=== PATIENT | female | born 1990 ===

== ENCOUNTER 2016-12-26 17:09 | Emergency (ER) | payer MEDICAID ==
[2016-12-26 17:22] VITALS: TEMP 98.2
--- NOTE | 2016-12-26 17:29 | C.PDOC ---
Time Seen by Provider: 12/26/16 17:29 Chief Complaint (Nursing): Dizziness/Lightheaded Past Medical History Vital Signs: Last Vital Signs Temp 98.2 F 12/26/16 17:17 Pulse 100 H 12/26/16 17:17 Resp 20 12/26/16 17:17 BP 114/77 12/26/16 17:17 Pulse Ox 100 12/26/16 17:17 - Medical History PMH: Asthma, Chronic Pain (Back pain ) Denies: Chronic Kidney Disease Family History: States: Unknown Family Hx - Social History Hx Tobacco Use: No Hx Alcohol Use: No Hx Substance Use: No - Immunization History Hx Tetanus Toxoid Vaccination: No Hx Influenza Vaccination: No Hx Pneumococcal Vaccination: No ED Course And Treatment O2 Sat by Pulse Oximetry: 100 Disposition - Disposition Disposition: HOME/ ROUTINE Disposition Time: 17:29
[2016-12-26 17:43] LABS: RBC URINE 13 /hpf (0-3); URINE BILIRUBIN NEGATIVE (NEGATIVE); URINE BLOOD 2+ (NEGATIVE); URINE CALCIUM OXALATE CRYSTALS FEW /hpf (<OCC); URINE COLOR Yellow (YELLOW); URINE GLUCOSE (UA) NORMAL (Normal); URINE KETONE NEGATIVE (NEGATIVE); URINE LEUKOCYTE ESTERASE 3+ Leu/uL (Negative); URINE PROTEIN NEGATIVE (NEGATIVE); URINE UROBILINOGEN NORMAL mg/dL (0.2-1.0); WBC URINE 56 /hpf (0-5)
--- NOTE | 2016-12-26 17:54 | C.PDOC ---
History Of Present Illness 26 y/o female presents to ED with complaints of feeling lightheadedness, nausea , and feeling tired for the past 3 weeks. Patient reports last menses was . She notes taking tests at home which were negative. Denies any pelvic pain, back pain, vaginal bleeding, dysuria, hematuria, vomiting, diarrhea , or other associated symptoms. Time Seen by Provider: 12/26/16 17:29 Chief Complaint (Nursing): Dizziness/Lightheaded History Per: Patient History/Exam Limitations: no limitations Onset/Duration Of Symptoms: Days Current Symptoms Are (Timing): Still Present Pain Scale Rating Of: 0 Recent travel outside of the [place]: No Past Medical History Reviewed: Historical Data, Nursing Documentation, Vital Signs Vital Signs: Last Vital Signs Temp 98.2 F 12/26/16 17:17 Pulse 85 12/26/16 17:56 Resp 18 12/26/16 17:56 BP 110/62 12/26/16 17:56 Pulse Ox 100 12/26/16 18:18 - Medical History PMH: Asthma, Chronic Pain (Back pain ) Family History: States: Unknown Family Hx - Social History Hx Tobacco Use: No Hx Alcohol Use: No Hx Substance Use: No - Immunization History Hx Tetanus Toxoid Vaccination: No Hx Influenza Vaccination: No Hx Pneumococcal Vaccination: No Review Of Systems Except As Marked, All Systems Reviewed And Found Negative. Constitutional: Positive for: Weakness. Negative for: Fever, Chills Respiratory: Negative for: Cough, Shortness of Breath Gastrointestinal: Positive for: Nausea. Negative for: Vomiting Genitourinary: Negative for: Vaginal Bleeding, Pelvic Pain Musculoskeletal: Negative for: Back Pain Physical Exam - Physical Exam Appears: Non-toxic, No Acute Distress Skin: Normal Color, Warm, Dry Head: Atraumatic, Normacephalic Oral Mucosa: Moist Chest: Symmetrical Cardiovascular: Rhythm Regular Respiratory: Normal Breath Sounds, No Rales, No Rhonchi, No Wheezing Gastrointestinal/Abdominal: Soft, No Tenderness, No Guarding, No Rebound Back: No CVA Tenderness Extremity: Normal ROM, Capillary Refill (< 2 sec. ) Neurological/Psych: Oriented x3, Normal Speech, Normal Cognition ED Course And Treatment O2 Sat by Pulse Oximetry: 100 (RA) Pulse Ox Interpretation: Normal Medical Decision Making Medical Decision Making: UA shows multiple WBC will treat for UTI. Patient remained afebrile and in no acute distress. Explain UA shows UTI and needs antibiotics. test negative Advise follow up with primary doctor or with pocket creaser Disposition Counseled Patient/Family Regarding: Diagnosis, Need For Followup, Rx Given - Disposition Referrals: Amaris Lackey MD [Staff Provider] - Disposition: HOME/ ROUTINE Disposition Time: 17:52 Condition: STABLE Additional Instructions: Your urine test shows infection and negative for Please follow up with your primary physician Dr Lackey for further evaluation Take antibiotic twice daily Prescriptions: Nitrofurantoin Macrocrystals [Macrobid] 100 mg PO BID #14 cap Instructions: Urinary Tract Infection in Women (ED) - POA Present On Arrival: None - Clinical Impression Clinical Impression: UTI (urinary tract infection), Negative test - PA / SILK FINISHER / Resident Statement MD/DO has reviewed & agrees with the documentation as recorded. - Scribe Statement The provider has reviewed the documentation as recorded by the Billy Marrero Provider Scribe Attestation: All medical record entries made by the Billy were at my direction and personally dictated by me. I have reviewed the chart and agree that the record accurately reflects my personal performance of the history, physical exam, medical decision making, and the department course for this patient. I have also personally directed, reviewed, and agree with the discharge instructions and disposition.
[2016-12-26 17:57] VITALS: BP 110/62; PULSE 85; RESP 18
[2016-12-26 18:18] VITALS: O2SAT 100
== END 2016-12-26 18:05 | disposition home or self-care (01) ==
LOC: C.ER 17:09
DX: N39.0 Urinary tract infection, site not specified (principal); Z32.02 Encounter for pregnancy test, result negative